=== PATIENT | female | born 1955 | race Caucasian/White ===

== ENCOUNTER 2017-08-10 12:01 | Emergency (ER) | payer BC ==
--- NOTE | 2017-08-10 12:53 | RAD ---
LEFT WRIST THREE VIEWS: 08/10/2017 HISTORY: Fall on an outstretched hand. COMPARISON: None. FINDINGS: There is a subtle impaction transverse fracture involving the distal left radius, with minimal displa cement posteriorly. No evidence for dislocation. No associated ulnar styloid fracture. IMPRESSION: Impaction fracture of the distal left radius. POS: [facility]
[2017-08-10] MEDS ORDERED: traMADol HCl 50 MG TAB ONE (13:12)
== END 2017-08-10 13:25 | disposition home or self-care (01) ==
LOC: MADERS 12:01
DX: S52.502A Unspecified fracture of the lower end of left radius, initial encounter for closed fracture (principal); W18.30XA Fall on same level, unspecified, initial encounter; I10 Essential (primary) hypertension
CPT/HCPCS: 29125